=== PATIENT | male | born 1990 | race Caucasian/White ===

== ENCOUNTER 2016-04-13 22:43 | Emergency (ER) | payer OTHER ==
[~2016-04-13] VITALS: Ht 185.4 cm; Wt 84.5 kg
[2016-04-13 22:45] VITALS: Ht 185.4 cm; Wt 84.5 kg
--- NOTE | 2016-04-14 02:31 | ERD ---
ER Documentation Chief Complaint Date/Time DATE: 04/14/16 TIME: 02:29 Chief Complaint R sole pain (ball area) since Thursday after working out HPI 26-year-old male presents to emergency department for complaint of right foot pain, more on the heel area after working out at 3 days ago. Patient discussed the pain as sharp pain, depression scale, is worse upon walking. Patient started to have the pain after working out, runs in the gym a lot. Patient denies any redness or swelling. Patient denies any deformity. Patient did not take any medications to help with symptoms. ROS All systems reviewed and are negative except as per history of present illness. Medications Home Meds Reported Medications [none] Unknown Strength No Conflict Check 04/14/16 Allergies Allergies: Coded Allergies: No Known Allergies (Verified Allergy, Mild, 08/12/15) PMhx/Soc Medical and Surgical Hx: pt denies Medical Hx, pt denies Surgical Hx History of Surgery: No Anesthesia Reaction: No Hx Neurological Disorder: No Hx Respiratory Disorders: No Hx Cardiac Disorders: No Hx Psychiatric Problems: No Hx Miscellaneous Medical Probl: No Hx Alcohol Use: Yes (SOCIALLY) Hx Substance Use: No Hx Tobacco Use: No Smoking Status: Never smoker FmHx Family History: No coronary disease, No diabetes, No other Physical Exam Vitals Vital Signs Date Time Temp Pulse Resp B/P Pulse Ox O2 Delivery O2 Flow Rate FiO2 04/13/16 22:45 98.4 66 16 139/88 99 Physical Exam GENERAL: The patient is well developed and appropriate for usual state of health, in no apparent distress. CHEST: Clear to auscultation bilaterally. There are no rales, wheezes or rhonchi. HEART: Regular rate and rhythm. No murmurs, clicks, rubs or gallops. No S3 or S4. ABDOMEN: Soft, nontender and nondistended. Good bowel sounds. No rebound or guarding. No gross peritonitis. No gross organomegaly or masses. No Parra sign or McBurney point tenderness. BACK: No midline or flank tenderness. EXTREMITIES: Tenderness on palpation on the plantar aspect of the right foot. No deformity noted, no swelling noted. Equal pulses bilaterally. Full range of motion of other joints of the body. Grossly neurovascularly intact. NEURO: Alert and oriented. Cranial nerves 2-12 intact. Motor strength in all 4 extremities with 5/5 strength. Sensation grossly intact. Normal speech and gait. SKIN: There is no apparent rash or petechia. The skin is warm and dry. HEMATOLOGIC AND LYMPHATIC: There is no evidence of excessive bruising or lymphedema. No gross cervical, axillary, or inguinal lymphadenopathy. Results 24 hrs PROCEDURE: XR Foot. CLINICAL INDICATION: r foot pain TECHNIQUE: 3 views of the right foot were obtained. COMPARISON: None. FINDINGS: No fracture or dislocation is seen. No foreign body is seen. No marked soft tissue swelling. No significant degenerative change. IMPRESSION: No definite acute fracture or dislocation. RPTAT: HLBE More Alas Physician Date Time Electronically viewed and signed by More Alas Physician on 04/14/2016 03 :06 LE/ CC: ORLY LOZADA PHYSICIST [employer] Procedures/MDM Medical Decision Making: Patient's pain is most likely consistent with a contusion or a sprain. There is no suspicion for neurovascular compromise. Patient has intact sensation and circulation of the affected extremity. There is low suspicion for septic arthritis. Patient does not have any fever. Radiology exams of the affected area does not show any fracture or dislocation. Disposition: Home. Patient is given prescription for ibuprofen for pain. Patient was advised to elevate the affected area and apply ice on affected area. Patient was advised that if symptoms are worse, numbness, tingling, high fever, unable to move joint, worsening symptoms, to return to emergency department immediately. Otherwise, patient is advised to follow up with the primary care doctor in 5-7 days for reevaluation of symptoms. Departure Diagnosis: Primary Impression: Foot contusion Encounter type: initial encounter Laterality: right Qualified Code: S90.31XA - Contusion of right foot, initial encounter Condition: Stable Patient Instructions: Contusion, Foot Additional Instructions: Patient is given prescription for ibuprofen for pain. Patient was advised to elevate the affected area and apply ice on affected area. Patient was advised that if symptoms are worse, numbness, tingling, high fever, unable to move joint , worsening symptoms, to return to emergency department immediately. Otherwise, patient is advised to follow up with the primary care doctor in 5-7 days for reevaluation of symptoms. ORLY LOZADA NP Apr 14, 2016 02:31
--- NOTE | 2016-04-14 03:06 | RADRPT ---
PROCEDURE: XR Foot. CLINICAL INDICATION: r foot pain TECHNIQUE: 3 views of the right foot were obtained. COMPARISON: None. FINDINGS: No fracture or dislocation is seen. No foreign body is seen. No marked soft tissue swelling. No s ignificant degenerative change. IMPRESSION: No definite acute fracture or dislocation. RPTAT: HLBE More Alas Physician Date Time Electronically viewed and signed by More Alas, Physician on 04/14/2016 03:06 LE/
[2016-04-14] MEDS ORDERED: IBUP-1542 PO (03:33)
[2016-04-14 03:50] VITALS: BP 120/66; PULSE 88; RESP 18; TEMP 98
== END 2016-04-14 03:51 | disposition home or self-care (01) ==
LOC: FTE 22:43
DX: S90.31XA Contusion of right foot, initial encounter (principal); X58.XXXA Exposure to other specified factors, initial encounter; Y92.9 Unspecified place or not applicable
CPT/HCPCS: 73630

== ENCOUNTER 2017-12-17 16:45 | Emergency (ER) | END 2017-12-17 20:47 | disposition home or self-care (01) ==